=== PATIENT | male | born 2000 | race Caucasian/White ===

== ENCOUNTER 2019-08-12 20:14 | Emergency (ER) | payer OTHER ==
[~2019-08-12] VITALS: Ht 165.1 cm; Wt 75.0 kg
[2019-08-12 20:27] VITALS: BP 132/64; TEMP 99
[2019-08-12] MEDS ORDERED: WELLBUTRIN 100100 MG PO (20:43)
[2019-08-12] MEDS ORDERED: CELEXA40 MG PO (20:43)
[2019-08-12] MEDS ORDERED: ALLEGRA 60MG TA60 MG PO (20:44)
[2019-08-12 20:51] VITALS: PULSE 63
== END 2019-08-12 20:51 | disposition home or self-care (01) ==
LOC: COL.ER 20:14
DX: S01.512A Laceration without foreign body of oral cavity, initial encounter (principal); J45.909 Unspecified asthma, uncomplicated; F32.9 Major depressive disorder, single episode, unspecified; V29.00XA Motorcycle driver injured in collision with unspecified motor vehicles in nontraffic accident, initial encounter